=== PATIENT | female | born 1955 | race Caucasian/White ===

== ENCOUNTER 2021-02-07 09:03 | Observation (INO) | payer MEDICARE ==
[~2021-02-07] VITALS: Ht 157.5 cm; Wt 76.7 kg
[2021-02-07 09:37] LABS: BASOPHILS % 0.5 % (0.0-1.0); EOSINOPHILS # (AUTO) 0.2 (0.0-0.4); EOSINOPHILS % 2.6 % (0.0-6.0); HEMATOCRIT 32.6 % (34.2-44.1); HEMOGLOBIN 10.5 g/dL (12.0-16.0); LYMPHOCYTES # (AUTO) 1.4 (1.0-3.2); LYMPHOCYTES % 22.6 % (18.0-39.1); MEAN CORPUSCULAR HEMOGLOBIN 29.2 pg (28-32); MEAN CORPUSCULAR HGB CONC 32.2 g/dL (31-35); MEAN CORPUSCULAR VOLUME 90.6 fL (81-99); MONOCYTES # (AUTO) 0.5 (0.2-0.8); MONOCYTES % 8.2 % (4.4-11.3); NEUTROPHILS # (AUTO) 4.1 (2.1-6.9); NEUTROPHILS % 65.9 % (38.7-80.0); PLATELET COUNT 180 x10e3/uL (140-360); RED CELL DISTRIBUTION WIDTH 13.5 % (11.7-14.4)
[2021-02-07 09:59] LABS: ALANINE AMINOTRANSFERASE 20 IU/L (0-55); ALBUMIN/GLOBULIN RATIO 1.1 (0.8-2.0); ALKALINE PHOSPHATASE 90 IU/L (40-150); ANION GAP 18.1 mmol/L (8-16); BLOOD UREA NITROGEN 14 mg/dL (7-26); BUN/CREATININE RATIO 16 (6-25); CARBON DIOXIDE 22 mmol/L (22-29); CHLORIDE 108 mmol/L (98-107); CREATINE KINASE 82 IU/L (29-168); CREATININE, SERUM 0.89 mg/dL (0.57-1.11); EST GLOMERULAR FILTRATION RATE > 60 ML/MIN (60-); GLUCOSE 135 mg/dL (74-118); MAGNESIUM 1.5 MG/DL (1.3-2.1); POTASSIUM 4.1 mmol/L (3.5-5.1); SODIUM 144 mmol/L (136-145)
[2021-02-07 10:08] LABS: INR 1.51; PROTHROMBIN TIME 18.9 seconds (11.9-14.5)
[2021-02-07 10:09] LABS: PARTIAL THROMBOPLASTIN TIME 31.6 seconds (23.8-35.5)
[2021-02-07 10:19] LABS: THYROID STIMULATING HORMONE 0.004 uIU/mL (0.350-4.940)
[2021-02-07] MEDS ORDERED: METFORMIN HCL500 MG PO (10:55)
[2021-02-07] MEDS ORDERED: ELIQUIS5 MG PO (10:55)
[2021-02-07] MEDS ORDERED: SEROQUEL100 MG PO (10:55)
[2021-02-07] MEDS ORDERED: VERAPAMIL ER P200 MG PO (10:55)
[2021-02-07] MEDS ORDERED: BUPROPION HCL150 MG PO (12:11)
[2021-02-07] MEDS ORDERED: ALENDRONATE SOD70 MG PO (12:12)
[2021-02-07] MEDS ORDERED: SODIUM CHLORIDE 0.9% 50ML 50 ML ONE (13:14)
[2021-02-07] MEDS: FAMOTIDINE 20 MG/2 ML VIAL IV SCH (13:15)
[2021-02-07] MEDS ORDERED: ONDANSETRON HCL INJ 2MG/ML 2ML 2 MG/ML VIAL IV PRN (13:15)
[2021-02-07] MEDS ORDERED: IOPAMIDOL 370 MG/ML 200 ML INFUS..BTL INJ ONE (13:15)
[2021-02-07] MEDS ORDERED: NITROGLYCERIN 0.4 MG SUBL SL PRN (13:15)
[2021-02-07 14:21] VITALS: BP 154/82
[2021-02-07 14:45] VITALS: BP 154/82
[2021-02-07 14:56] VITALS: BP 154/82
[2021-02-07 16:03] VITALS: BP 143/76
[2021-02-07] MEDS: DOCUSATE SODIUM 100 MG CAP PO SCH (16:16)
[2021-02-07] MEDS: SENNOSIDES 8.6 MG TAB PO SCH (16:16)
[2021-02-07 20:06] VITALS: BP 151/85
[2021-02-07] MEDS: TRAMADOL HCL 50 MG TAB PO PRN (21:57)
[2021-02-07 21:59] VITALS: BP 151/85
[2021-02-07 23:19] LABS: CREATINE KINASE MB 1.7 ng/mL (0-5.0)
[2021-02-08] VITALS (7 sets, daily range): BP systolic 133–157; BP diastolic 80–87
[2021-02-08] MEDS: FAMOTIDINE 20 MG/2 ML VIAL IV SCH ×2 (02:00→14:07)
[2021-02-08 05:39] LABS: BASOPHILS % 0.3 % (0.0-1.0); EOSINOPHILS # (AUTO) 0.1 (0.0-0.4); EOSINOPHILS % 1.9 % (0.0-6.0); HEMATOCRIT 31.5 % (34.2-44.1); HEMOGLOBIN 10.2 g/dL (12.0-16.0); LYMPHOCYTES # (AUTO) 1.7 (1.0-3.2); LYMPHOCYTES % 30.2 % (18.0-39.1); MEAN CORPUSCULAR HEMOGLOBIN 29.1 pg (28-32); MEAN CORPUSCULAR HGB CONC 32.4 g/dL (31-35); MONOCYTES # (AUTO) 0.5 (0.2-0.8); MONOCYTES % 9.1 % (4.4-11.3); NEUTROPHILS # (AUTO) 3.3 (2.1-6.9); NEUTROPHILS % 58.2 % (38.7-80.0); PLATELET COUNT 164 x10e3/uL (140-360); RED CELL DISTRIBUTION WIDTH 13.6 % (11.7-14.4)
[2021-02-08 05:56] LABS: ALANINE AMINOTRANSFERASE 20 IU/L (0-55); ALBUMIN 3.8 g/dL (3.5-5.0); ALBUMIN/GLOBULIN RATIO 1.2 (0.8-2.0); ALKALINE PHOSPHATASE 87 IU/L (40-150); ANION GAP 14.9 mmol/L (8-16); BLOOD UREA NITROGEN 13 mg/dL (7-26); BUN/CREATININE RATIO 16 (6-25); CALCIUM 9.1 mg/dL (8.4-10.2); CARBON DIOXIDE 24 mmol/L (22-29); CHLORIDE 109 mmol/L (98-107); CHOL/HDL RATIO 3.1 (3.0-3.6); CHOLESTEROL 101 MD/DL (0-199); CREATININE, SERUM 0.82 mg/dL (0.57-1.11); EST GLOMERULAR FILTRATION RATE > 60 ML/MIN (60-); GLUCOSE 89 mg/dL (74-118); HDL CHOLESTEROL 33 MG/DL (40-60); LDL CHOLESTEROL 50 MG/DL (60-130); POTASSIUM 3.9 mmol/L (3.5-5.1); SODIUM 144 mmol/L (136-145); TRIGLYCERIDES 88 MG/DL (0-149)
[2021-02-08 06:23] LABS: CREATINE KINASE MB 1.1 ng/mL (0-5.0)
[2021-02-08] MEDS ORDERED: ACETAMINOPHEN 325 MG TAB PO PRN (07:00)
[2021-02-08] MEDS ORDERED: DEXTROSE 50% SYRINGE 50 ML IV PRN (07:00)
[2021-02-08] MEDS ORDERED: ZOLPIDEM TARTRATE 5 MG TAB PO PRN (07:00)
[2021-02-08] MEDS: INSULIN REGULAR, HUMAN 100 UNIT/1 ML 3ML VIAL SQ SCH ×3 (07:30→16:30)
[2021-02-08 07:31] LABS: FREE THYROXINE INDEX 3.3017 (1.4-3.8); THYROID STIMULATING HORMONE 0.005 uIU/mL (0.350-4.940)
[2021-02-08] MEDS ORDERED: APIXABAN 5 MG TABLET PO SCH (09:00)
[2021-02-08] MEDS ORDERED: ONDANSETRON HCL 4 MG ORAL DISINTEGRATING TAB PO PRN (09:00)
[2021-02-08] MEDS ORDERED: ASPIRIN 81 MG ENTERIC COATED PO SCH (09:00)
[2021-02-08] MEDS ORDERED: REGADENOSON 0.4 MG/5 ML SYR IV ONE (13:05)
[2021-02-08] MEDS: SENNOSIDES 8.6 MG TAB PO SCH ×2 (14:07→17:00)
[2021-02-08] MEDS: DOCUSATE SODIUM 100 MG CAP PO SCH ×2 (14:07→17:00)
[2021-02-08] MEDS: TRAMADOL HCL 50 MG TAB PO PRN (14:07)
[2021-02-08 14:56] LABS: CREATINE KINASE MB 1.4 ng/mL (0-5.0)
[2021-02-08] MEDS ORDERED: VERAPAMIL HCL 200 MG PO SCH (17:00)
[2021-02-08] MEDS ORDERED: QUETIAPINE FUMARATE 100 MG TAB PO SCH (21:00)
== END 2021-02-08 19:46 | disposition home or self-care (01) ==
LOC: ER 09:47 → ERHOLD 13:07 → MED/SURG3 14:05
PROVIDERS: ADMIT Internal Medicine; ATTEND Internal Medicine
DX: R07.89 Other chest pain (principal); K59.00 Constipation, unspecified; E11.9 Type 2 diabetes mellitus without complications; I48.91 Unspecified atrial fibrillation; I10 Essential (primary) hypertension; E03.9 Hypothyroidism, unspecified; E66.9 Obesity, unspecified; Z68.30 Body mass index [BMI] 30.0-30.9, adult; Z20.822 Contact with and (suspected) exposure to COVID-19; Z79.84 Long term (current) use of oral hypoglycemic drugs
CPT/HCPCS: 36415 ×2; 71045; 74018; 74177; 78452; 80053 ×2; 80061; 82550 ×2; 82553 ×2; 82948 ×2; 83036; 83735; 83880; 84436; 84443 ×2; 84479; 84484 ×2; 85025 ×2; 85610; 85730; 93005; 93017; 93306; 99284; A9502; G0378 ×2; J2785; Q9967; U0002

== ENCOUNTER 2021-02-25 07:07 | Emergency (ER) | payer MEDICARE ==
[~2021-02-25] VITALS: Ht 157.5 cm; Wt 76.7 kg
[~2021-02-25 07:07] MED LIST: ALENDRONATE SOD70 MG PO; BUPROPION HCL150 MG PO; ELIQUIS5 MG PO; METFORMIN HCL500 MG PO; SEROQUEL100 MG PO; VERAPAMIL ER P200 MG PO
[2021-02-25] MEDS ORDERED: KETOROLAC TROMETHAMINE 30 MG/ML VIAL IV STA (07:27)
[2021-02-25 07:36] LABS: BASOPHILS % 0.5 % (0.0-1.0); EOSINOPHILS # (AUTO) 0.1 (0.0-0.4); EOSINOPHILS % 2.3 % (0.0-6.0); HEMATOCRIT 33.4 % (34.2-44.1); HEMOGLOBIN 10.6 g/dL (12.0-16.0); LYMPHOCYTES # (AUTO) 1.3 (1.0-3.2); LYMPHOCYTES % 22.4 % (18.0-39.1); MEAN CORPUSCULAR HEMOGLOBIN 28.6 pg (28-32); MEAN CORPUSCULAR HGB CONC 31.7 g/dL (31-35); MEAN CORPUSCULAR VOLUME 90.3 fL (81-99); MONOCYTES # (AUTO) 0.4 (0.2-0.8); NEUTROPHILS # (AUTO) 3.8 (2.1-6.9); NEUTROPHILS % 67.6 % (38.7-80.0); PLATELET COUNT 160 x10e3/uL (140-360); RED CELL DISTRIBUTION WIDTH 13.9 % (11.7-14.4)
[2021-02-25 07:47] LABS: CLARITY,URINE SL CLOUDY (CLEAR); COLOR,URINE YELLOW (YELLOW); KETONES,URINE NEGATIVE (NEGATIVE); LEUKOCYTE ESTERASE ,URINE LARGE (NEGATIVE); NITRITE,URINE NEGATIVE (NEGATIVE); PROTEIN,URINE DIPSTICK NEGATIVE (NEGATIVE); URINE UROBILINOGEN 0.2 mg/dL (0.2 - 1)
[2021-02-25 07:56] LABS: ALBUMIN 4.2 g/dL (3.5-5.0); ALBUMIN/GLOBULIN RATIO 1.3 (0.8-2.0); CALCIUM 9.4 mg/dL (8.4-10.2)
[2021-02-25 08:02] LABS: BACTERIA,URINE MANY /HPF; EPITHELIAL CELLS,URINE MODERATE /LPF; WBC,URINE (MAN) >50 /HPF (0-5)
[2021-02-25 08:03] LABS: CREATINE KINASE MB 5.1 ng/mL (0-5.0)
[2021-02-25] MEDS ORDERED: TYLENOL # 31 EA PO (08:47)
[2021-02-25] MEDS ORDERED: CIPRO500 MG PO (08:47)
[2021-02-25] MEDS ORDERED: CIPROFLOXACIN 500 MG TAB PO SCH (08:50)
== END 2021-02-25 09:17 | disposition home or self-care (01) ==
LOC: ER 07:31
DX: R00.2 Palpitations (principal); N39.0 Urinary tract infection, site not specified; I10 Essential (primary) hypertension; E11.65 Type 2 diabetes mellitus with hyperglycemia; I48.91 Unspecified atrial fibrillation; F41.9 Anxiety disorder, unspecified; H55.00 Unspecified nystagmus; H54.8 Legal blindness, as defined in USA
CPT/HCPCS: 36415; 74176; 80053; 81001; 82550; 82553; 83690; 84484; 85025; 93005; 99284; J1885

== ENCOUNTER 2021-03-05 07:54 | Inpatient (IN) | payer MEDICARE ==
[~2021-03-05] VITALS: Ht 157.5 cm; Wt 76.7 kg
[~2021-03-05 07:54] MED LIST changes: +CIPRO500 MG PO; +TYLENOL # 31 EA PO
[2021-03-05 08:27] LABS: BASOPHILS % 0.5 % (0.0-1.0); EOSINOPHILS # (AUTO) 0.1 (0.0-0.4); EOSINOPHILS % 2.4 % (0.0-6.0); HEMATOCRIT 32.9 % (34.2-44.1); HEMOGLOBIN 10.5 g/dL (12.0-16.0); LYMPHOCYTES # (AUTO) 1.3 (1.0-3.2); MEAN CORPUSCULAR HEMOGLOBIN 28.7 pg (28-32); MEAN CORPUSCULAR HGB CONC 31.9 g/dL (31-35); MEAN CORPUSCULAR VOLUME 89.9 fL (81-99); MONOCYTES # (AUTO) 0.4 (0.2-0.8); MONOCYTES % 7.6 % (4.4-11.3); NEUTROPHILS # (AUTO) 3.9 (2.1-6.9); NEUTROPHILS % 67.3 % (38.7-80.0); PLATELET COUNT 165 x10e3/uL (140-360); RED BLOOD COUNT 3.66 x10e6/uL (3.6-5.1); RED CELL DISTRIBUTION WIDTH 14.6 % (11.7-14.4)
[2021-03-05 09:13] LABS: MAGNESIUM 1.6 MG/DL (1.3-2.1)
[2021-03-05 09:19] LABS: ALANINE AMINOTRANSFERASE 19 IU/L (0-55); ALBUMIN 4.1 g/dL (3.5-5.0); ALBUMIN/GLOBULIN RATIO 1.5 (0.8-2.0); ALKALINE PHOSPHATASE 71 IU/L (40-150); ANION GAP 19.5 mmol/L (8-16); BLOOD UREA NITROGEN 43 mg/dL (7-26); BUN/CREATININE RATIO 22 (6-25); CALCIUM 8.4 mg/dL (8.4-10.2); CARBON DIOXIDE 17 mmol/L (22-29); CHLORIDE 107 mmol/L (98-107); CREATINE KINASE 149 IU/L (29-168); CREATININE, SERUM 1.94 mg/dL (0.57-1.11); EST GLOMERULAR FILTRATION RATE 26 ML/MIN (60-); GLUCOSE 107 mg/dL (74-118); POTASSIUM 4.5 mmol/L (3.5-5.1); SODIUM 139 mmol/L (136-145)
[2021-03-05] MEDS ORDERED: SODIUM CHLORIDE 0.9% 1000ML 1,000 ML IV STA (09:26)
[2021-03-05 09:34] LABS: THYROID STIMULATING HORMONE 1.026 uIU/mL (0.350-4.940)
[2021-03-05] MEDS ORDERED: FAMOTIDINE 20 MG/2 ML VIAL IV SCH (10:30)
[2021-03-05 10:36] LABS: CLARITY,URINE CLOUDY (CLEAR); COLOR,URINE YELLOW (YELLOW); LEUKOCYTE ESTERASE ,URINE TRACE (NEGATIVE); NITRITE,URINE NEGATIVE (NEGATIVE); PROTEIN,URINE DIPSTICK NEGATIVE (NEGATIVE)
[2021-03-05 10:37] LABS: KETONES,URINE NEGATIVE (NEGATIVE); URINE UROBILINOGEN 1 mg/dL (0.2 - 1)
[2021-03-05 10:56] LABS: BACTERIA,URINE MANY /HPF; EPITHELIAL CELLS,URINE MODERATE /LPF
[2021-03-05 11:29] VITALS: BP 112/82
[2021-03-05 11:53] VITALS: BP 140/80
[2021-03-05] MEDS: FAMOTIDINE 20 MG/2 ML VIAL IV SCH ×2 (12:47→20:46)
[2021-03-05 13:52] VITALS: BP 140/80
[2021-03-05] MEDS ORDERED: DOCUSATE SODIUM 100 MG CAP PO PRN (15:30)
[2021-03-05] MEDS ORDERED: CEFTRIAXONE 2 GM/DEXT 100 ML 2 GM/100 ML ML IV SCH (15:30)
[2021-03-05] MEDS ORDERED: ONDANSETRON HCL INJ 2MG/ML 2ML 2 MG/ML VIAL IV PRN (15:30)
[2021-03-05] MEDS: SODIUM CHLORIDE 0.9% 1000ML 1,000 ML IV SCH (15:38)
[2021-03-05 15:42] LABS: CHOL/HDL RATIO 2.3 (3.0-3.6)
[2021-03-05] MEDS: CEFTRIAXONE 1 GM in SODIUM CHLORIDE 0.9% 50ML 50 ML IV SCH (15:49)
[2021-03-05] MEDS: BUPROPION HCL SR 150 MG TAB PO SCH (16:15)
[2021-03-05 16:49] LABS: CREATINE KINASE 115 IU/L (29-168)
[2021-03-05 16:55] VITALS: BP 115/75
[2021-03-05 20:00] VITALS: BP_SYST 115; BP_SYST 131; BP_DIAS 75; BP_DIAS 87
[2021-03-05] MEDS: ZOLPIDEM TARTRATE 5 MG TAB PO PRN (20:46)
[2021-03-06] VITALS (8 sets, daily range): BP systolic 114–146; BP diastolic 64–81
[2021-03-06 04:59] LABS: BASOPHILS % 0.5 % (0.0-1.0); EOSINOPHILS # (AUTO) 0.2 (0.0-0.4); EOSINOPHILS % 3.4 % (0.0-6.0); HEMATOCRIT 30.1 % (34.2-44.1); HEMOGLOBIN 9.6 g/dL (12.0-16.0); LYMPHOCYTES # (AUTO) 1.2 (1.0-3.2); MEAN CORPUSCULAR HGB CONC 31.9 g/dL (31-35); MEAN CORPUSCULAR VOLUME 90.9 fL (81-99); MONOCYTES # (AUTO) 0.3 (0.2-0.8); MONOCYTES % 7.8 % (4.4-11.3); NEUTROPHILS # (AUTO) 2.7 (2.1-6.9); NEUTROPHILS % 61.1 % (38.7-80.0); PLATELET COUNT 132 x10e3/uL (140-360); RED BLOOD COUNT 3.31 x10e6/uL (3.6-5.1); RED CELL DISTRIBUTION WIDTH 14.3 % (11.7-14.4)
[2021-03-06 05:31] LABS: ALBUMIN 3.7 g/dL (3.5-5.0); ALBUMIN/GLOBULIN RATIO 1.3 (0.8-2.0); CALCIUM 8.2 mg/dL (8.4-10.2); CREATININE, SERUM 1.08 mg/dL (0.57-1.11)
[2021-03-06] MEDS: SODIUM CHLORIDE 0.9% 1000ML 1,000 ML IV SCH ×3 (05:40→21:30)
[2021-03-06 07:39] LABS: MAGNESIUM 1.5 MG/DL (1.3-2.1); PHOSPHORUS 2.2 MG/DL (2.3-4.7)
[2021-03-06 07:42] LABS: CREATINE KINASE 98 IU/L (29-168)
[2021-03-06] MEDS: VERAPAMIL HCL 200 MG PO SCH (08:23)
[2021-03-06] MEDS: BUPROPION HCL SR 150 MG TAB PO SCH ×2 (08:23→17:00)
[2021-03-06] MEDS: QUETIAPINE FUMARATE 100 MG TAB PO SCH (08:23)
[2021-03-06] MEDS: FAMOTIDINE 20 MG/2 ML VIAL IV SCH ×2 (08:23→21:00)
[2021-03-06] MEDS: APIXABAN 5 MG TABLET PO SCH (08:23)
[2021-03-06] MEDS: ACETAMINOPHEN 325 MG TAB PO PRN (09:00)
[2021-03-06] MEDS: CEFTRIAXONE 1 GM in SODIUM CHLORIDE 0.9% 50ML 50 ML IV SCH (16:00)
[2021-03-07] VITALS (8 sets, daily range): BP systolic 111–151; BP diastolic 69–88
[2021-03-07 02:43] LABS: BASOPHILS % 0.6 % (0.0-1.0); EOSINOPHILS # (AUTO) 0.2 (0.0-0.4); EOSINOPHILS % 3.2 % (0.0-6.0); HEMATOCRIT 30.5 % (34.2-44.1); HEMOGLOBIN 9.7 g/dL (12.0-16.0); LYMPHOCYTES # (AUTO) 1.5 (1.0-3.2); LYMPHOCYTES % 29.7 % (18.0-39.1); MEAN CORPUSCULAR HGB CONC 31.8 g/dL (31-35); MEAN CORPUSCULAR VOLUME 91.3 fL (81-99); MONOCYTES # (AUTO) 0.4 (0.2-0.8); MONOCYTES % 8.2 % (4.4-11.3); NEUTROPHILS # (AUTO) 2.9 (2.1-6.9); NEUTROPHILS % 58.1 % (38.7-80.0); PLATELET COUNT 152 x10e3/uL (140-360); RED BLOOD COUNT 3.34 x10e6/uL (3.6-5.1); RED CELL DISTRIBUTION WIDTH 14.3 % (11.7-14.4)
[2021-03-07 02:54] LABS: ANION GAP 13.9 mmol/L (8-16); BLOOD UREA NITROGEN 12 mg/dL (7-26); BUN/CREATININE RATIO 13 (6-25); CALCIUM 8.8 mg/dL (8.4-10.2); CARBON DIOXIDE 20 mmol/L (22-29); CHLORIDE 112 mmol/L (98-107); CREATININE, SERUM 0.92 mg/dL (0.57-1.11); EST GLOMERULAR FILTRATION RATE > 60 ML/MIN (60-); GLUCOSE 93 mg/dL (74-118); POTASSIUM 3.9 mmol/L (3.5-5.1); SODIUM 142 mmol/L (136-145)
[2021-03-07] MEDS: ZOLPIDEM TARTRATE 5 MG TAB PO PRN ×2 (03:22→22:15)
[2021-03-07] MEDS: SODIUM CHLORIDE 0.9% 1000ML 1,000 ML IV SCH ×2 (05:51→15:23)
[2021-03-07 06:29] LABS: ANION GAP 14.8 mmol/L (8-16); BLOOD UREA NITROGEN 10 mg/dL (7-26); BUN/CREATININE RATIO 12 (6-25); CALCIUM 8.6 mg/dL (8.4-10.2); CARBON DIOXIDE 19 mmol/L (22-29); CHLORIDE 112 mmol/L (98-107); CREATININE, SERUM 0.83 mg/dL (0.57-1.11); EST GLOMERULAR FILTRATION RATE > 60 ML/MIN (60-); GLUCOSE 115 mg/dL (74-118); MAGNESIUM 1.4 MG/DL (1.3-2.1); PHOSPHORUS 2.8 MG/DL (2.3-4.7); POTASSIUM 3.8 mmol/L (3.5-5.1); SODIUM 142 mmol/L (136-145)
[2021-03-07] MEDS: APIXABAN 5 MG TABLET PO SCH (08:50)
[2021-03-07] MEDS: FAMOTIDINE 20 MG/2 ML VIAL IV SCH ×2 (08:50→20:16)
[2021-03-07] MEDS: BUPROPION HCL SR 150 MG TAB PO SCH ×2 (08:51→19:16)
[2021-03-07] MEDS: QUETIAPINE FUMARATE 100 MG TAB PO SCH (08:51)
[2021-03-07] MEDS: VERAPAMIL HCL 200 MG PO SCH (09:00)
[2021-03-07] MEDS: CEFTRIAXONE 1 GM in SODIUM CHLORIDE 0.9% 50ML 50 ML IV SCH (15:22)
[2021-03-07] MEDS ORDERED: ONDANSETRON HCL 4 MG ORAL DISINTEGRATING TAB PO PRN (16:00)
[2021-03-08] VITALS: BP 127/69
[2021-03-08 04:00] VITALS: BP 141/81
[2021-03-08] MEDS: SODIUM CHLORIDE 0.9% 1000ML 1,000 ML IV SCH (04:55)
[2021-03-08] MEDS: ACETAMINOPHEN 325 MG TAB PO PRN (05:33)
[2021-03-08 08:01] VITALS: BP 146/88
[2021-03-08] MEDS: APIXABAN 5 MG TABLET PO SCH (08:29)
[2021-03-08] MEDS: VERAPAMIL HCL 200 MG PO SCH (08:29)
[2021-03-08] MEDS: BUPROPION HCL SR 150 MG TAB PO SCH (08:29)
[2021-03-08] MEDS: FAMOTIDINE 20 MG/2 ML VIAL IV SCH (08:29)
[2021-03-08] MEDS: QUETIAPINE FUMARATE 100 MG TAB PO SCH (08:29)
[2021-03-08 09:14] VITALS: BP 146/88
[2021-03-08] MEDS ORDERED: COLACE100 MG PO (09:24)
[2021-03-08] MEDS ORDERED: KEFLEX125 MG/5 M PO (09:24)
== END 2021-03-08 11:14 | disposition home or self-care (01) | DRG 683 ==
LOC: ER 08:04 → ERHOLD 10:47 → MED/SURG 11:33 → OBSVTOIN 03-06 13:57
PROVIDERS: ADMIT Internal Medicine; ATTEND Internal Medicine
DX: N17.9 Acute kidney failure, unspecified (principal); I48.20 Chronic atrial fibrillation, unspecified; N12 Tubulo-interstitial nephritis, not specified as acute or chronic; Z79.01 Long term (current) use of anticoagulants; E66.9 Obesity, unspecified; Z68.30 Body mass index [BMI] 30.0-30.9, adult; Z20.822 Contact with and (suspected) exposure to COVID-19
CPT/HCPCS: 36415; 71046; 80048; 80053; 80061; 81001; 82550; 82553; 82948; 83036; 83735; 84100; 84443; 84484; 85025; 87086; 87186; 93005; 96361; 96365; 99284; G0378; J0696; J7030; U0002

== ENCOUNTER 2021-03-20 07:42 | Emergency (ER) | payer MEDICARE, OTHER ==
[~2021-03-20] VITALS: Ht 157.5 cm; Wt 76.7 kg
[~2021-03-20 07:42] MED LIST changes: +COLACE100 MG PO; +KEFLEX125 MG/5 M PO
== END 2021-03-20 09:49 | disposition home or self-care (01) ==
LOC: ER 07:59
DX: R00.2 Palpitations (principal); I10 Essential (primary) hypertension; E11.9 Type 2 diabetes mellitus without complications; E78.5 Hyperlipidemia, unspecified; I48.91 Unspecified atrial fibrillation; H54.8 Legal blindness, as defined in USA; H55.00 Unspecified nystagmus; F41.9 Anxiety disorder, unspecified
CPT/HCPCS: 93005; 99283